=== PATIENT | male | born 1960 | race Caucasian/White ===

== ENCOUNTER 2019-05-13 17:00 | Inpatient (IN) | payer OTHER ==
[2019-05-13] MEDS ORDERED: PENDING SANTYL ORDER FOR WOUND CARE XX (17:30)
[2019-05-13] MEDS ORDERED: NACL 0.9% 3 ML SYG IV (17:30)
[2019-05-13 18:46] LABS: ADD MAN DIFF? NO
[2019-05-13 18:48] LABS: BASOPHIL # 0.1 10^3/ul (0.0-0.1); BASOPHILS % 0.7 % (0.0-2.0); EOSINOPHILS # 0.2 10^3/ul (0.0-0.5); EOSINOPHILS % 1.7 % (0.0-7.0); HEMATOCRIT 31.1 % (42.0-52.0); HEMOGLOBIN 9.9 g/dl (14.0-18.0); LYMPHOCYTES # 1.3 10^3/ul (0.8-2.9); LYMPHOCYTES % 12.2 % (15.0-51.0); MEAN CORPUSCULAR HEMOGLOBIN 29.9 pg (29.0-33.0); MEAN CORPUSCULAR HGB CONC 31.8 g/dl (32.0-37.0); MEAN PLATELET VOLUME 9.7 fl (7.4-10.4); MONOCYTE # 0.9 10^3/ul (0.3-0.9); MONOCYTES % 8.2 % (0.0-11.0); NEUTROPHIL # 8.4 10^3/ul (1.6-7.5); NEUTROPHILS % 76.7 % (39.0-77.0); PLATELET COUNT 373 10^3/UL (140-415); RED BLOOD COUNT 3.31 10^6/ul (4.70-6.10); RED CELL DISTRIBUTION WIDTH 15.1 % (11.5-14.5)
[2019-05-13 18:48] LABS: WHITE BLOOD COUNT 10.9 10^3/ul (4.8-10.8)
[2019-05-13] MEDS ORDERED: GLUCOSE GEL 15 GRAM TUBE BUCCAL (19:00)
[2019-05-13] MEDS ORDERED: GLUCOSE GEL 15 GRAM TUBE PO ×2 (19:00)
[2019-05-13] MEDS ORDERED: DEXTROSE 50% 50 ML SYRINGE IV ×2 (19:00)
[2019-05-13] MEDS ORDERED: GLUCAGON 1 MG INJ IM (19:00)
[2019-05-13 19:13] LABS: ALANINE AMINOTRANSFERASE 22 IU/L (13-69); ALBUMIN 3.2 g/dl (3.3-4.9); ALBUMIN/GLOBULIN RATIO 0.88; ALKALINE PHOSPHATASE 139 IU/L (42-121); ANION GAP 10 (5-13); ASPARTATE AMINO TRANSFERASE 22 IU/L (15-46); BILIRUBIN,INDIRECT 0.2 mg/dl (0-1.1); BILIRUBIN,TOTAL 0.2 mg/dl (0.2-1.3); BLOOD UREA NITROGEN 34 mg/dl (7-20); CALCIUM 8.8 mg/dl (8.4-10.2); CARBON DIOXIDE 22 mmol/L (21-31); CHLORIDE 101 mmol/L (97-110); CREATININE 1.65 mg/dl (0.61-1.24); Estimated GFR 43 mL/min (>60); GLUCOSE 124 mg/dl (70-220); POTASSIUM 4.8 mmol/L (3.5-5.1); SODIUM 133 mmol/L (135-144); TOTAL PROTEIN 6.8 g/dl (6.1-8.1)
[2019-05-13] MEDS: ATORVASTATIN 40 MG TAB PO (21:04)
[2019-05-13] MEDS: INSULIN ASPART [NOVOLOG] 3 ML PEN SC (22:51)
[2019-05-14] MEDS: INSULIN ASPART [NOVOLOG] 3 ML PEN SC ×6 (01:17→21:00)
[2019-05-14 06:07] LABS: ADD MAN DIFF? NO; HAAIG REFLEX REFLEX FILED
[2019-05-14 06:11] LABS: BASOPHIL # 0.1 10^3/ul (0.0-0.1); BASOPHILS % 0.8 % (0.0-2.0); EOSINOPHILS # 0.3 10^3/ul (0.0-0.5); EOSINOPHILS % 2.9 % (0.0-7.0); HEMATOCRIT 31.3 % (42.0-52.0); HEMOGLOBIN 9.7 g/dl (14.0-18.0); LYMPHOCYTES # 1.4 10^3/ul (0.8-2.9); LYMPHOCYTES % 13.2 % (15.0-51.0); MEAN CORPUSCULAR HEMOGLOBIN 29.4 pg (29.0-33.0); MEAN CORPUSCULAR VOLUME 94.8 fl (82.0-101.0); MEAN PLATELET VOLUME 9.7 fl (7.4-10.4); MONOCYTES % 8.9 % (0.0-11.0); NEUTROPHIL # 7.9 10^3/ul (1.6-7.5); NEUTROPHILS % 73.7 % (39.0-77.0); PLATELET COUNT 346 10^3/UL (140-415); RED CELL DISTRIBUTION WIDTH 15.1 % (11.5-14.5)
[2019-05-14 06:11] LABS: WHITE BLOOD COUNT 10.7 10^3/ul (4.8-10.8)
[2019-05-14 06:48] LABS: ALANINE AMINOTRANSFERASE 18 IU/L (13-69); ALKALINE PHOSPHATASE 132 IU/L (42-121); ANION GAP 8 (5-13); ASPARTATE AMINO TRANSFERASE 17 IU/L (15-46); BILIRUBIN,INDIRECT 0.1 mg/dl (0-1.1); BILIRUBIN,TOTAL 0.1 mg/dl (0.2-1.3); BLOOD UREA NITROGEN 39 mg/dl (7-20); CALCIUM 9.4 mg/dl (8.4-10.2); CARBON DIOXIDE 23 mmol/L (21-31); CHLORIDE 104 mmol/L (97-110); CREATININE 1.97 mg/dl (0.61-1.24); Estimated GFR 35 mL/min (>60); GLUCOSE 140 mg/dl (70-220); POTASSIUM 3.9 mmol/L (3.5-5.1); SODIUM 135 mmol/L (135-144); TOTAL PROTEIN 6.3 g/dl (6.1-8.1)
[2019-05-14 07:04] LABS: HEMOGLOBIN A1C 5.6 % (0-5.9)
[2019-05-14 07:34] LABS: HEPATITIS B SURFACE ANTIGEN NEGATIVE (NEGATIVE)
[2019-05-14 07:52] LABS: HEPATITIS B CORE ANTIBODY NEGATIVE (NEGATIVE); HEPATITIS C VIRAL ANTIBODY NEGATIVE (NEGATIVE)
[2019-05-14] MEDS: ASPIRIN 81 MG TAB PO (08:13)
[2019-05-14] MEDS: ENOXAPARIN 40 MG/0.4 ML SYG SC (08:18)
[2019-05-14] MEDS: COLLAGENASE 5 GM (UD JAR) TOP (11:03)
[2019-05-14] MEDS ORDERED: LEVOFLOXACIN 500 MG TAB GTB (18:30)
[2019-05-14] MEDS: HEPARIN 1000 UNITS/ML 10 ML INJ CATHETER (18:40)
[2019-05-14] MEDS ORDERED: BALSAM PERU/CASTOR OIL 60 GM TUBE TOP (21:00)
[2019-05-14] MEDS: METOCLOPRAMIDE (1 MG/ML) 10 ML CUP GTB (21:45)
[2019-05-14] MEDS: GABAPENTIN 100 MG CAP GTB (21:45)
[2019-05-14] MEDS: LANSOPRAZOLE 30 MG CAP PO (21:45)
[2019-05-14] MEDS: LEVOFLOXACIN 500 MG TAB GTB (21:45)
[2019-05-14] MEDS: MIRTAZAPINE 15 MG TAB GTB (21:45)
[2019-05-14] MEDS: VENLAFAXINE 37.5 MG TAB GTB (21:45)
[2019-05-14] MEDS: ATORVASTATIN 10 MG TAB GTB (21:45)
[2019-05-14] MEDS: morphine 2 MG INJ IV (22:48)
[2019-05-14] MEDS: L ACIDOPHIL/B LACTIS/B LONGUM CAPSULE PO (22:53)
[2019-05-15] MEDS: INSULIN ASPART [NOVOLOG] 3 ML PEN SC ×6 (01:02→20:14)
[2019-05-15] MEDS: morphine 2 MG INJ IV ×2 (03:17→20:12)
[2019-05-15] MEDS: METOCLOPRAMIDE (1 MG/ML) 10 ML CUP GTB ×3 (05:19→22:00)
[2019-05-15 06:41] LABS: ADD MAN DIFF? NO
[2019-05-15 06:45] LABS: BASOPHIL # 0.1 10^3/ul (0.0-0.1); BASOPHILS % 0.6 % (0.0-2.0); EOSINOPHILS # 0.1 10^3/ul (0.0-0.5); EOSINOPHILS % 0.8 % (0.0-7.0); HEMATOCRIT 30.5 % (42.0-52.0); HEMOGLOBIN 9.7 g/dl (14.0-18.0); LYMPHOCYTES # 1.6 10^3/ul (0.8-2.9); MEAN CORPUSCULAR HEMOGLOBIN 29.6 pg (29.0-33.0); MEAN CORPUSCULAR HGB CONC 31.8 g/dl (32.0-37.0); MEAN PLATELET VOLUME 9.6 fl (7.4-10.4); MONOCYTE # 1.2 10^3/ul (0.3-0.9); MONOCYTES % 8.6 % (0.0-11.0); NEUTROPHIL # 10.5 10^3/ul (1.6-7.5); NEUTROPHILS % 77.5 % (39.0-77.0); PLATELET COUNT 367 10^3/UL (140-415); RED BLOOD COUNT 3.28 10^6/ul (4.70-6.10); RED CELL DISTRIBUTION WIDTH 15.1 % (11.5-14.5)
[2019-05-15 06:45] LABS: WHITE BLOOD COUNT 13.6 10^3/ul (4.8-10.8)
[2019-05-15 07:25] LABS: ANION GAP 7 (5-13); BLOOD UREA NITROGEN 32 mg/dl (7-20); CALCIUM 8.8 mg/dl (8.4-10.2); CARBON DIOXIDE 29 mmol/L (21-31); CHLORIDE 100 mmol/L (97-110); CREATININE 1.45 mg/dl (0.61-1.24); Estimated GFR 49 mL/min (>60); GLUCOSE 165 mg/dl (70-220); POTASSIUM 3.5 mmol/L (3.5-5.1); SODIUM 136 mmol/L (135-144)
[2019-05-15 07:26] LABS: MAGNESIUM 2.3 mg/dl (1.7-2.5)
[2019-05-15 07:26] LABS: PHOSPHORUS 1.9 mg/dl (2.5-4.9)
[2019-05-15] MEDS: ASPIRIN 81 MG TAB GTB (08:41)
[2019-05-15] MEDS: L ACIDOPHIL/B LACTIS/B LONGUM CAPSULE PO ×3 (08:42→20:11)
[2019-05-15] MEDS: GABAPENTIN 100 MG CAP GTB ×3 (08:42→20:11)
[2019-05-15] MEDS: SEVELAMER CARBONATE 800 MG TABLET PO ×3 (08:42→16:41)
[2019-05-15] MEDS: VENLAFAXINE 37.5 MG TAB GTB ×2 (08:42→20:10)
[2019-05-15] MEDS: LANSOPRAZOLE 30 MG CAP PO ×2 (08:42→20:11)
[2019-05-15] MEDS: COLLAGENASE 5 GM (UD JAR) TOP (08:43)
[2019-05-15] MEDS ORDERED: COLLAGENASE 5 GM (UD JAR) TOP (09:00)
[2019-05-15] MEDS ORDERED: COLLAGENASE 30 GM TUBE TOP (09:00)
[2019-05-15] MEDS: ENOXAPARIN 40 MG/0.4 ML SYG SC (09:12)
[2019-05-15] MEDS: CLONIDINE 0.1 MG/24 HR PATCH TRANSDERM (18:04)
[2019-05-15] MEDS: ATORVASTATIN 10 MG TAB GTB (20:11)
[2019-05-15] MEDS: MIRTAZAPINE 15 MG TAB GTB (20:11)
[2019-05-16] MEDS: INSULIN ASPART [NOVOLOG] 3 ML PEN SC ×6 (01:00→20:30)
[2019-05-16] MEDS: METOCLOPRAMIDE (1 MG/ML) 10 ML CUP GTB ×3 (05:05→22:00)
[2019-05-16 07:46] LABS: ADD MAN DIFF? NO
[2019-05-16 07:54] LABS: WHITE BLOOD COUNT 9.2 10^3/ul (4.8-10.8)
[2019-05-16 07:54] LABS: BASOPHIL # 0.1 10^3/ul (0.0-0.1); BASOPHILS % 1.1 % (0.0-2.0); EOSINOPHILS # 0.4 10^3/ul (0.0-0.5); EOSINOPHILS % 3.9 % (0.0-7.0); HEMATOCRIT 27.4 % (42.0-52.0); HEMOGLOBIN 8.7 g/dl (14.0-18.0); LYMPHOCYTES # 1.5 10^3/ul (0.8-2.9); LYMPHOCYTES % 15.9 % (15.0-51.0); MEAN CORPUSCULAR HEMOGLOBIN 29.3 pg (29.0-33.0); MEAN CORPUSCULAR HGB CONC 31.8 g/dl (32.0-37.0); MEAN CORPUSCULAR VOLUME 92.3 fl (82.0-101.0); MEAN PLATELET VOLUME 9.7 fl (7.4-10.4); MONOCYTE # 0.7 10^3/ul (0.3-0.9); MONOCYTES % 8.1 % (0.0-11.0); NEUTROPHIL # 6.5 10^3/ul (1.6-7.5); NEUTROPHILS % 70.7 % (39.0-77.0); PLATELET COUNT 344 10^3/UL (140-415); RED BLOOD COUNT 2.97 10^6/ul (4.70-6.10); RED CELL DISTRIBUTION WIDTH 14.8 % (11.5-14.5)
[2019-05-16] MEDS: SEVELAMER CARBONATE 800 MG TABLET PO ×3 (07:55→17:22)
[2019-05-16 08:11] LABS: PROTIME 14.3 Sec (11.9-14.9); PT RATIO 1.1
[2019-05-16 08:28] LABS: PHOSPHORUS 3.1 mg/dl (2.5-4.9)
[2019-05-16 08:28] LABS: MAGNESIUM 2.3 mg/dl (1.7-2.5)
[2019-05-16 08:30] LABS: ALANINE AMINOTRANSFERASE 20 IU/L (13-69); ALBUMIN 2.6 g/dl (3.3-4.9); ALBUMIN/GLOBULIN RATIO 0.86; ALKALINE PHOSPHATASE 119 IU/L (42-121); ANION GAP 9 (5-13); ASPARTATE AMINO TRANSFERASE 17 IU/L (15-46); BILIRUBIN,INDIRECT 0.2 mg/dl (0-1.1); BILIRUBIN,TOTAL 0.2 mg/dl (0.2-1.3); BLOOD UREA NITROGEN 42 mg/dl (7-20); CALCIUM 8.6 mg/dl (8.4-10.2); CARBON DIOXIDE 27 mmol/L (21-31); CHLORIDE 101 mmol/L (97-110); Estimated GFR 34 mL/min (>60); GLUCOSE 91 mg/dl (70-220); SODIUM 137 mmol/L (135-144); TOTAL PROTEIN 5.6 g/dl (6.1-8.1)
[2019-05-16] MEDS: VENLAFAXINE 37.5 MG TAB GTB ×2 (08:30→20:32)
[2019-05-16] MEDS: ASPIRIN 81 MG TAB GTB (08:30)
[2019-05-16] MEDS: L ACIDOPHIL/B LACTIS/B LONGUM CAPSULE PO ×2 (08:30→12:20)
[2019-05-16] MEDS: LANSOPRAZOLE 30 MG CAP PO ×2 (08:30→20:32)
[2019-05-16] MEDS: GABAPENTIN 100 MG CAP GTB ×3 (08:30→20:32)
[2019-05-16] MEDS: COLLAGENASE 5 GM (UD JAR) TOP (08:32)
[2019-05-16] MEDS: FAMOTIDINE 20 MG INJ IV (08:33)
[2019-05-16] MEDS: ENOXAPARIN 40 MG/0.4 ML SYG SC (08:41)
[2019-05-16] MEDS: DEXTROSE 5%-0.45% NACL 1,000 ML IV (14:36)
[2019-05-16] MEDS: morphine 2 MG INJ IV (19:57)
[2019-05-16] MEDS: ATORVASTATIN 10 MG TAB GTB (20:32)
[2019-05-16] MEDS: MIRTAZAPINE 15 MG TAB GTB (20:32)
[2019-05-16] MEDS: LEVOFLOXACIN 500 MG TAB GTB (20:32)
[2019-05-17] MEDS: INSULIN ASPART [NOVOLOG] 3 ML PEN SC ×6 (01:00→20:37)
[2019-05-17] MEDS: morphine 2 MG INJ IV ×2 (01:24→20:43)
[2019-05-17] MEDS: METOCLOPRAMIDE (1 MG/ML) 10 ML CUP GTB ×3 (05:56→22:00)
[2019-05-17 06:40] LABS: ADD MAN DIFF? NO
[2019-05-17 06:47] LABS: WHITE BLOOD COUNT 8.4 10^3/ul (4.8-10.8)
[2019-05-17 06:47] LABS: BASOPHIL # 0.1 10^3/ul (0.0-0.1); BASOPHILS % 1.2 % (0.0-2.0); EOSINOPHILS # 0.3 10^3/ul (0.0-0.5); EOSINOPHILS % 3.4 % (0.0-7.0); HEMATOCRIT 31.3 % (42.0-52.0); HEMOGLOBIN 9.8 g/dl (14.0-18.0); LYMPHOCYTES # 1.4 10^3/ul (0.8-2.9); MEAN CORPUSCULAR HEMOGLOBIN 29.2 pg (29.0-33.0); MEAN CORPUSCULAR HGB CONC 31.3 g/dl (32.0-37.0); MEAN CORPUSCULAR VOLUME 93.2 fl (82.0-101.0); MEAN PLATELET VOLUME 9.4 fl (7.4-10.4); MONOCYTE # 0.6 10^3/ul (0.3-0.9); MONOCYTES % 6.9 % (0.0-11.0); NEUTROPHIL # 6.1 10^3/ul (1.6-7.5); NEUTROPHILS % 72.1 % (39.0-77.0); PLATELET COUNT 358 10^3/UL (140-415); RED BLOOD COUNT 3.36 10^6/ul (4.70-6.10); RED CELL DISTRIBUTION WIDTH 14.7 % (11.5-14.5)
[2019-05-17 07:05] LABS: INR 1.12; PROTIME 14.5 Sec (11.9-14.9); PT RATIO 1.1
[2019-05-17 07:19] LABS: ANION GAP 12 (5-13); BLOOD UREA NITROGEN 50 mg/dl (7-20); CALCIUM 8.9 mg/dl (8.4-10.2); CARBON DIOXIDE 24 mmol/L (21-31); CHLORIDE 102 mmol/L (97-110); CREATININE 2.47 mg/dl (0.61-1.24); Estimated GFR 27 mL/min (>60); GLUCOSE 116 mg/dl (70-220); POTASSIUM 3.9 mmol/L (3.5-5.1); SODIUM 138 mmol/L (135-144)
[2019-05-17] MEDS: LANSOPRAZOLE 30 MG CAP PO ×2 (07:55→20:26)
[2019-05-17] MEDS: SEVELAMER CARBONATE 800 MG TABLET PO ×3 (07:55→16:49)
[2019-05-17] MEDS: VENLAFAXINE 37.5 MG TAB GTB ×2 (07:55→20:26)
[2019-05-17] MEDS: GABAPENTIN 100 MG CAP GTB ×3 (07:55→20:26)
[2019-05-17] MEDS: ASPIRIN 81 MG TAB GTB (07:55)
[2019-05-17] MEDS: COLLAGENASE 5 GM (UD JAR) TOP (08:49)
[2019-05-17] MEDS: FAMOTIDINE 20 MG INJ IV (08:49)
[2019-05-17] MEDS: DEXTROSE 5%-0.45% NACL 1,000 ML IV (09:01)
[2019-05-17] MEDS: FENTAnyl 50 MCG/ML VIAL (14:09)
[2019-05-17] MEDS: MIDAZOLAM 1 MG/ML 2 ML INJ (14:09)
[2019-05-17] MEDS: LIDOCAINE 2% (SDV) 5 ML INJ (14:09)
[2019-05-17] MEDS: ETOMIDATE 20 MG INJ (14:10)
[2019-05-17] MEDS ORDERED: HYDROmorphONE 1 MG/5 ML IV SYRINGE IV (15:00)
[2019-05-17] MEDS ORDERED: ONDANSETRON 4 MG INJ IV (15:00)
[2019-05-17] MEDS: IOHEXOL 300MG/ML 30 ML BTL (15:20)
[2019-05-17] MEDS: ATORVASTATIN 10 MG TAB GTB (20:26)
[2019-05-17] MEDS: MIRTAZAPINE 15 MG TAB GTB (20:26)
[2019-05-18] MEDS: INSULIN ASPART [NOVOLOG] 3 ML PEN SC ×6 (01:00→20:42)
[2019-05-18] MEDS: HEPARIN 1000 UNITS/ML 10 ML INJ CATHETER (01:15)
[2019-05-18] MEDS: morphine 2 MG INJ IV (02:12)
[2019-05-18] MEDS: ACETAMINOPHEN 650MG/20.3ML CUP GTB (03:41)
[2019-05-18] MEDS: METOCLOPRAMIDE (1 MG/ML) 10 ML CUP GTB ×3 (05:27→21:37)
[2019-05-18 07:31] LABS: ADD MAN DIFF? NO
[2019-05-18 07:39] LABS: BASOPHIL # 0.1 10^3/ul (0.0-0.1); BASOPHILS % 0.7 % (0.0-2.0); EOSINOPHILS # 0.1 10^3/ul (0.0-0.5); EOSINOPHILS % 0.9 % (0.0-7.0); HEMATOCRIT 30.2 % (42.0-52.0); HEMOGLOBIN 9.6 g/dl (14.0-18.0); LYMPHOCYTES # 0.9 10^3/ul (0.8-2.9); LYMPHOCYTES % 8.4 % (15.0-51.0); MEAN CORPUSCULAR HEMOGLOBIN 29.4 pg (29.0-33.0); MEAN CORPUSCULAR HGB CONC 31.8 g/dl (32.0-37.0); MEAN CORPUSCULAR VOLUME 92.4 fl (82.0-101.0); MEAN PLATELET VOLUME 9.7 fl (7.4-10.4); MONOCYTE # 0.7 10^3/ul (0.3-0.9); MONOCYTES % 6.3 % (0.0-11.0); NEUTROPHIL # 8.8 10^3/ul (1.6-7.5); NEUTROPHILS % 83.4 % (39.0-77.0); PLATELET COUNT 362 10^3/UL (140-415); RED BLOOD COUNT 3.27 10^6/ul (4.70-6.10); RED CELL DISTRIBUTION WIDTH 14.5 % (11.5-14.5)
[2019-05-18 07:39] LABS: WHITE BLOOD COUNT 10.5 10^3/ul (4.8-10.8)
[2019-05-18 08:15] LABS: ANION GAP 9 (5-13); BLOOD UREA NITROGEN 32 mg/dl (7-20); CALCIUM 8.7 mg/dl (8.4-10.2); CARBON DIOXIDE 28 mmol/L (21-31); CHLORIDE 100 mmol/L (97-110); Estimated GFR 44 mL/min (>60); GLUCOSE 207 mg/dl (70-220); POTASSIUM 3.3 mmol/L (3.5-5.1); SODIUM 137 mmol/L (135-144)
[2019-05-18] MEDS: GABAPENTIN 100 MG CAP GTB ×3 (08:28→20:27)
[2019-05-18] MEDS: VENLAFAXINE 37.5 MG TAB GTB ×2 (08:28→20:27)
[2019-05-18] MEDS: LANSOPRAZOLE 30 MG CAP PO ×2 (08:28→20:27)
[2019-05-18] MEDS: ASPIRIN 81 MG TAB GTB (08:28)
[2019-05-18] MEDS: FAMOTIDINE 20 MG INJ IV (08:28)
[2019-05-18] MEDS: SEVELAMER CARBONATE 800 MG TABLET PO ×3 (08:28→16:55)
[2019-05-18] MEDS: COLLAGENASE 5 GM (UD JAR) TOP (09:36)
[2019-05-18] MEDS: ATORVASTATIN 10 MG TAB GTB (20:26)
[2019-05-18] MEDS: hydrALAzine 20 MG INJ IV (20:26)
[2019-05-18] MEDS: LEVOFLOXACIN 500 MG TAB GTB (20:26)
[2019-05-18] MEDS: MIRTAZAPINE 15 MG TAB GTB (20:27)
[2019-05-18] MEDS: L ACIDOPHIL/B LACTIS/B LONGUM CAPSULE PO (20:27)
[2019-05-19] MEDS: INSULIN ASPART [NOVOLOG] 3 ML PEN SC ×6 (00:55→21:29)
[2019-05-19] MEDS: METOCLOPRAMIDE (1 MG/ML) 10 ML CUP GTB ×3 (04:47→21:05)
[2019-05-19 06:52] LABS: ADD MAN DIFF? NO
[2019-05-19 06:57] LABS: WHITE BLOOD COUNT 6.3 10^3/ul (4.8-10.8)
[2019-05-19 06:57] LABS: BASOPHILS % 0.6 % (0.0-2.0); EOSINOPHILS # 0.3 10^3/ul (0.0-0.5); EOSINOPHILS % 4.6 % (0.0-7.0); HEMATOCRIT 27.3 % (42.0-52.0); HEMOGLOBIN 8.7 g/dl (14.0-18.0); LYMPHOCYTES # 1.2 10^3/ul (0.8-2.9); LYMPHOCYTES % 18.8 % (15.0-51.0); MEAN CORPUSCULAR HEMOGLOBIN 29.3 pg (29.0-33.0); MEAN CORPUSCULAR HGB CONC 31.9 g/dl (32.0-37.0); MEAN CORPUSCULAR VOLUME 91.9 fl (82.0-101.0); MEAN PLATELET VOLUME 9.3 fl (7.4-10.4); MONOCYTE # 0.6 10^3/ul (0.3-0.9); MONOCYTES % 9.4 % (0.0-11.0); NEUTROPHIL # 4.1 10^3/ul (1.6-7.5); NEUTROPHILS % 66.1 % (39.0-77.0); PLATELET COUNT 298 10^3/UL (140-415); RED BLOOD COUNT 2.97 10^6/ul (4.70-6.10); RED CELL DISTRIBUTION WIDTH 14.3 % (11.5-14.5)
[2019-05-19 07:14] LABS: ANION GAP 8 (5-13); BLOOD UREA NITROGEN 44 mg/dl (7-20); CALCIUM 8.5 mg/dl (8.4-10.2); CARBON DIOXIDE 28 mmol/L (21-31); CHLORIDE 98 mmol/L (97-110); CREATININE 1.98 mg/dl (0.61-1.24); Estimated GFR 35 mL/min (>60); GLUCOSE 186 mg/dl (70-220); POTASSIUM 3.4 mmol/L (3.5-5.1); SODIUM 134 mmol/L (135-144)
[2019-05-19] MEDS: SEVELAMER CARBONATE 800 MG TABLET PO ×3 (07:53→17:28)
[2019-05-19] MEDS: POTASSIUM CHLORIDE 20 MEQ POWDER FOR ORAL SOLN GTB (07:53)
[2019-05-19] MEDS: COLLAGENASE 5 GM (UD JAR) TOP (08:36)
[2019-05-19] MEDS: L ACIDOPHIL/B LACTIS/B LONGUM CAPSULE PO ×2 (08:37→20:58)
[2019-05-19] MEDS: LANSOPRAZOLE 30 MG CAP PO ×2 (08:37→20:58)
[2019-05-19] MEDS: ASPIRIN 81 MG TAB GTB (08:37)
[2019-05-19] MEDS: GABAPENTIN 100 MG CAP GTB ×3 (08:37→20:58)
[2019-05-19] MEDS: VENLAFAXINE 37.5 MG TAB GTB ×2 (08:37→20:58)
[2019-05-19] MEDS: FAMOTIDINE 20 MG INJ IV (08:38)
[2019-05-19] MEDS ORDERED: ENOXAPARIN 40 MG/0.4 ML SYG SC (09:00)
[2019-05-19] MEDS: HEPARIN 1000 UNITS/ML 10 ML INJ CATHETER (13:26)
[2019-05-19] MEDS: morphine 2 MG INJ IV (19:52)
[2019-05-19] MEDS: ATORVASTATIN 10 MG TAB GTB (20:58)
[2019-05-19] MEDS: MIRTAZAPINE 15 MG TAB GTB (20:58)
[2019-05-20] MEDS: INSULIN ASPART [NOVOLOG] 3 ML PEN SC ×6 (01:24→21:37)
[2019-05-20] MEDS: METOCLOPRAMIDE (1 MG/ML) 10 ML CUP GTB ×3 (05:04→21:25)
[2019-05-20] MEDS: SEVELAMER CARBONATE 800 MG TABLET PO ×3 (07:51→17:40)
[2019-05-20] MEDS: L ACIDOPHIL/B LACTIS/B LONGUM CAPSULE PO ×2 (08:39→21:25)
[2019-05-20] MEDS: GABAPENTIN 100 MG CAP GTB ×3 (08:39→21:25)
[2019-05-20] MEDS: LANSOPRAZOLE 30 MG CAP PO ×2 (08:39→21:25)
[2019-05-20] MEDS: COLLAGENASE 5 GM (UD JAR) TOP (08:39)
[2019-05-20] MEDS: ASPIRIN 81 MG TAB GTB (08:40)
[2019-05-20] MEDS: FAMOTIDINE 20 MG INJ IV (08:40)
[2019-05-20] MEDS: VENLAFAXINE 37.5 MG TAB GTB ×2 (08:40→21:25)
[2019-05-20] MEDS: LEVOFLOXACIN 500 MG TAB GTB (21:25)
[2019-05-20] MEDS: ATORVASTATIN 10 MG TAB GTB (21:25)
[2019-05-20] MEDS: MIRTAZAPINE 15 MG TAB GTB (21:25)
[2019-05-21] MEDS: INSULIN ASPART [NOVOLOG] 3 ML PEN SC ×4 (01:02→17:28)
[2019-05-21] MEDS: METOCLOPRAMIDE (1 MG/ML) 10 ML CUP GTB ×3 (05:06→21:53)
[2019-05-21 07:25] LABS: ADD MAN DIFF? NO
[2019-05-21 07:31] LABS: WHITE BLOOD COUNT 6.3 10^3/ul (4.8-10.8)
[2019-05-21 07:31] LABS: BASOPHIL # 0.1 10^3/ul (0.0-0.1); EOSINOPHILS # 0.4 10^3/ul (0.0-0.5); HEMATOCRIT 29.5 % (42.0-52.0); HEMOGLOBIN 9.2 g/dl (14.0-18.0); LYMPHOCYTES # 1.2 10^3/ul (0.8-2.9); LYMPHOCYTES % 19.4 % (15.0-51.0); MEAN CORPUSCULAR HEMOGLOBIN 29.1 pg (29.0-33.0); MEAN CORPUSCULAR HGB CONC 31.2 g/dl (32.0-37.0); MEAN CORPUSCULAR VOLUME 93.4 fl (82.0-101.0); MEAN PLATELET VOLUME 9.9 fl (7.4-10.4); MONOCYTE # 0.7 10^3/ul (0.3-0.9); MONOCYTES % 10.8 % (0.0-11.0); NEUTROPHIL # 3.9 10^3/ul (1.6-7.5); NEUTROPHILS % 61.3 % (39.0-77.0); PLATELET COUNT 336 10^3/UL (140-415); RED BLOOD COUNT 3.16 10^6/ul (4.70-6.10); RED CELL DISTRIBUTION WIDTH 14.4 % (11.5-14.5)
[2019-05-21 07:54] LABS: ANION GAP 6 (5-13); BLOOD UREA NITROGEN 51 mg/dl (7-20); CALCIUM 8.7 mg/dl (8.4-10.2); CARBON DIOXIDE 30 mmol/L (21-31); CHLORIDE 100 mmol/L (97-110); Estimated GFR 36 mL/min (>60); GLUCOSE 162 mg/dl (70-220); MAGNESIUM 2.4 mg/dl (1.7-2.5); PHOSPHORUS 2.1 mg/dl (2.5-4.9); SODIUM 136 mmol/L (135-144)
[2019-05-21] MEDS: SEVELAMER CARBONATE 800 MG TABLET PO ×3 (08:23→17:23)
[2019-05-21] MEDS: LANSOPRAZOLE 30 MG CAP PO ×2 (08:23→21:53)
[2019-05-21] MEDS: L ACIDOPHIL/B LACTIS/B LONGUM CAPSULE PO ×2 (08:23→21:53)
[2019-05-21] MEDS: ASPIRIN 81 MG TAB GTB (08:23)
[2019-05-21] MEDS: COLLAGENASE 5 GM (UD JAR) TOP (08:23)
[2019-05-21] MEDS: VENLAFAXINE 37.5 MG TAB GTB ×2 (08:23→21:53)
[2019-05-21] MEDS: GABAPENTIN 100 MG CAP GTB ×3 (08:24→21:52)
[2019-05-21] MEDS: FAMOTIDINE 20 MG INJ IV (08:24)
[2019-05-21] MEDS: morphine 2 MG INJ IV (08:39)
[2019-05-21 10:23] LABS: ADD UMIC YES; UR ASCORBIC ACID NEGATIVE (NEGATIVE); UR BILIRUBIN (Dip) NEGATIVE (NEGATIVE); UR BLOOD (Dip) 1+ mg/dL (NEGATIVE); UR CLARITY CLEAR (CLEAR); UR COLOR YELLOW (YELLOW); UR GLUCOSE (Dip) 1+ mg/dL (NEGATIVE); UR KETONES (Dip) NEGATIVE (NEGATIVE); UR LEUKOCYTE ESTERASE (Dip) TRACE Leu/ul (NEGATIVE); UR NITRITE (Dip) NEGATIVE (NEGATIVE); UR RBC 1 /HPF (0-5); UR TOTAL PROTEIN (Dip) 2+ mg/dl (NEGATIVE); UR UROBILINOGEN (Dip) NEGATIVE (NEGATIVE); UR WBC 19 /HPF (0-5)
[2019-05-21] MEDS: SODIUM PHOSPHATE 15 MMOL in SOD CHLORIDE 0.9% 250 ML IVPB (13:48)
[2019-05-21] MEDS: MIRTAZAPINE 15 MG TAB GTB (21:53)
[2019-05-21] MEDS: ATORVASTATIN 10 MG TAB GTB (21:53)
[2019-05-22] MEDS: INSULIN ASPART [NOVOLOG] 3 ML PEN SC ×4 (00:34→17:40)
[2019-05-22] MEDS: morphine 2 MG INJ IV (00:38)
[2019-05-22] MEDS: METOCLOPRAMIDE (1 MG/ML) 10 ML CUP GTB ×3 (05:57→20:59)
[2019-05-22 06:40] LABS: ADD MAN DIFF? NO
[2019-05-22 06:47] LABS: WHITE BLOOD COUNT 6.7 10^3/ul (4.8-10.8)
[2019-05-22 06:47] LABS: BASOPHIL # 0.1 10^3/ul (0.0-0.1); BASOPHILS % 0.9 % (0.0-2.0); EOSINOPHILS # 0.4 10^3/ul (0.0-0.5); EOSINOPHILS % 5.4 % (0.0-7.0); HEMATOCRIT 29.8 % (42.0-52.0); HEMOGLOBIN 9.5 g/dl (14.0-18.0); LYMPHOCYTES # 1.5 10^3/ul (0.8-2.9); LYMPHOCYTES % 21.7 % (15.0-51.0); MEAN CORPUSCULAR HEMOGLOBIN 29.2 pg (29.0-33.0); MEAN CORPUSCULAR HGB CONC 31.9 g/dl (32.0-37.0); MEAN CORPUSCULAR VOLUME 91.7 fl (82.0-101.0); MEAN PLATELET VOLUME 9.7 fl (7.4-10.4); MONOCYTE # 0.7 10^3/ul (0.3-0.9); MONOCYTES % 10.8 % (0.0-11.0); NEUTROPHIL # 4.1 10^3/ul (1.6-7.5); NEUTROPHILS % 60.8 % (39.0-77.0); PLATELET COUNT 341 10^3/UL (140-415); RED BLOOD COUNT 3.25 10^6/ul (4.70-6.10); RED CELL DISTRIBUTION WIDTH 14.2 % (11.5-14.5)
[2019-05-22 07:38] LABS: ANION GAP 8 (5-13); BLOOD UREA NITROGEN 64 mg/dl (7-20); CALCIUM 8.5 mg/dl (8.4-10.2); CARBON DIOXIDE 28 mmol/L (21-31); CHLORIDE 99 mmol/L (97-110); CREATININE 2.22 mg/dl (0.61-1.24); Estimated GFR 30 mL/min (>60); GLUCOSE 168 mg/dl (70-220); SODIUM 135 mmol/L (135-144)
[2019-05-22 08:21] LABS: PHOSPHORUS 3.2 mg/dl (2.5-4.9)
[2019-05-22 08:21] LABS: MAGNESIUM 2.4 mg/dl (1.7-2.5)
[2019-05-22] MEDS: COLLAGENASE 5 GM (UD JAR) TOP (09:07)
[2019-05-22] MEDS: L ACIDOPHIL/B LACTIS/B LONGUM CAPSULE PO ×2 (09:07→20:56)
[2019-05-22] MEDS: SEVELAMER CARBONATE 800 MG TABLET PO ×3 (09:07→17:31)
[2019-05-22] MEDS: VENLAFAXINE 37.5 MG TAB GTB ×2 (09:07→20:56)
[2019-05-22] MEDS: FAMOTIDINE 20 MG INJ IV (09:07)
[2019-05-22] MEDS: GABAPENTIN 100 MG CAP GTB ×3 (09:07→20:56)
[2019-05-22] MEDS: ASPIRIN 81 MG TAB GTB (09:07)
[2019-05-22] MEDS: LANSOPRAZOLE 30 MG CAP PO ×2 (09:07→20:56)
[2019-05-22] MEDS: CLONIDINE 0.1 MG/24 HR PATCH TRANSDERM (18:40)
[2019-05-22] MEDS: HEPARIN 1000 UNITS/ML 10 ML INJ CATHETER (19:53)
[2019-05-22] MEDS: MIRTAZAPINE 15 MG TAB GTB (20:56)
[2019-05-22] MEDS: ATORVASTATIN 10 MG TAB GTB (20:56)
[2019-05-22] MEDS: LEVOFLOXACIN 500 MG TAB GTB (20:57)
[2019-05-23] MEDS: morphine 2 MG INJ IV (01:21)
[2019-05-23] MEDS: INSULIN ASPART [NOVOLOG] 3 ML PEN SC ×5 (01:33→17:18)
[2019-05-23] MEDS: METOCLOPRAMIDE (1 MG/ML) 10 ML CUP GTB ×3 (05:52→21:50)
[2019-05-23] MEDS: VENLAFAXINE 37.5 MG TAB GTB ×2 (09:09→21:51)
[2019-05-23] MEDS: ASPIRIN 81 MG TAB GTB (09:09)
[2019-05-23] MEDS: GABAPENTIN 100 MG CAP GTB ×3 (09:09→21:52)
[2019-05-23] MEDS: SEVELAMER CARBONATE 800 MG TABLET PO ×3 (09:09→17:18)
[2019-05-23] MEDS: COLLAGENASE 5 GM (UD JAR) TOP (09:09)
[2019-05-23] MEDS: L ACIDOPHIL/B LACTIS/B LONGUM CAPSULE PO ×2 (09:09→21:50)
[2019-05-23] MEDS: LANSOPRAZOLE 30 MG CAP PO ×2 (09:09→21:50)
[2019-05-23] MEDS: FAMOTIDINE 20 MG INJ IV (09:09)
[2019-05-23 12:22] LABS: ADD MAN DIFF? NO
[2019-05-23 12:24] LABS: BASOPHIL # 0.1 10^3/ul (0.0-0.1); BASOPHILS % 0.9 % (0.0-2.0); EOSINOPHILS # 0.4 10^3/ul (0.0-0.5); EOSINOPHILS % 5.5 % (0.0-7.0); HEMATOCRIT 31.2 % (42.0-52.0); HEMOGLOBIN 9.7 g/dl (14.0-18.0); LYMPHOCYTES # 1.4 10^3/ul (0.8-2.9); LYMPHOCYTES % 21.7 % (15.0-51.0); MEAN CORPUSCULAR HEMOGLOBIN 28.6 pg (29.0-33.0); MEAN CORPUSCULAR HGB CONC 31.1 g/dl (32.0-37.0); MEAN PLATELET VOLUME 9.8 fl (7.4-10.4); MONOCYTE # 0.9 10^3/ul (0.3-0.9); MONOCYTES % 14.5 % (0.0-11.0); NEUTROPHIL # 3.6 10^3/ul (1.6-7.5); NEUTROPHILS % 56.8 % (39.0-77.0); PLATELET COUNT 317 10^3/UL (140-415); RED BLOOD COUNT 3.39 10^6/ul (4.70-6.10); RED CELL DISTRIBUTION WIDTH 14.2 % (11.5-14.5)
[2019-05-23 12:24] LABS: WHITE BLOOD COUNT 6.4 10^3/ul (4.8-10.8)
[2019-05-23 12:47] LABS: ANION GAP 7 (5-13); BLOOD UREA NITROGEN 46 mg/dl (7-20); CALCIUM 8.4 mg/dl (8.4-10.2); CARBON DIOXIDE 28 mmol/L (21-31); CHLORIDE 101 mmol/L (97-110); CREATININE 1.62 mg/dl (0.61-1.24); Estimated GFR 44 mL/min (>60); GLUCOSE 179 mg/dl (70-220); POTASSIUM 4.7 mmol/L (3.5-5.1); SODIUM 136 mmol/L (135-144)
[2019-05-23] MEDS: ATORVASTATIN 10 MG TAB GTB (21:50)
[2019-05-23] MEDS: MIRTAZAPINE 15 MG TAB GTB (21:51)
[2019-05-24] MEDS: INSULIN ASPART [NOVOLOG] 3 ML PEN SC ×5 (01:31→21:00)
[2019-05-24] MEDS: METOCLOPRAMIDE (1 MG/ML) 10 ML CUP GTB ×3 (06:32→21:02)
[2019-05-24 08:25] LABS: ADD MAN DIFF? NO
[2019-05-24] MEDS: L ACIDOPHIL/B LACTIS/B LONGUM CAPSULE PO ×2 (08:30→20:59)
[2019-05-24] MEDS: VENLAFAXINE 37.5 MG TAB GTB ×2 (08:30→21:00)
[2019-05-24] MEDS: SEVELAMER CARBONATE 800 MG TABLET PO ×3 (08:30→17:15)
[2019-05-24] MEDS: ASPIRIN 81 MG TAB GTB (08:31)
[2019-05-24] MEDS: GABAPENTIN 100 MG CAP GTB ×3 (08:31→21:00)
[2019-05-24] MEDS: LANSOPRAZOLE 30 MG CAP PO ×2 (08:31→20:59)
[2019-05-24] MEDS: FAMOTIDINE 20 MG INJ IV (08:31)
[2019-05-24] MEDS: COLLAGENASE 5 GM (UD JAR) TOP (08:31)
[2019-05-24 08:33] LABS: BASOPHIL # 0.1 10^3/ul (0.0-0.1); BASOPHILS % 0.8 % (0.0-2.0); EOSINOPHILS # 0.4 10^3/ul (0.0-0.5); EOSINOPHILS % 6.3 % (0.0-7.0); HEMATOCRIT 31.7 % (42.0-52.0); HEMOGLOBIN 9.8 g/dl (14.0-18.0); LYMPHOCYTES # 1.8 10^3/ul (0.8-2.9); LYMPHOCYTES % 30.3 % (15.0-51.0); MEAN CORPUSCULAR HEMOGLOBIN 28.8 pg (29.0-33.0); MEAN CORPUSCULAR HGB CONC 30.9 g/dl (32.0-37.0); MEAN CORPUSCULAR VOLUME 93.2 fl (82.0-101.0); MEAN PLATELET VOLUME 10.1 fl (7.4-10.4); MONOCYTE # 0.8 10^3/ul (0.3-0.9); MONOCYTES % 12.7 % (0.0-11.0); NEUTROPHIL # 2.9 10^3/ul (1.6-7.5); NEUTROPHILS % 49.2 % (39.0-77.0); PLATELET COUNT 316 10^3/UL (140-415); RED CELL DISTRIBUTION WIDTH 14.4 % (11.5-14.5)
[2019-05-24 08:33] LABS: WHITE BLOOD COUNT 5.9 10^3/ul (4.8-10.8)
[2019-05-24 08:56] LABS: ANION GAP 7 (5-13); BLOOD UREA NITROGEN 60 mg/dl (7-20); CALCIUM 8.8 mg/dl (8.4-10.2); CARBON DIOXIDE 28 mmol/L (21-31); CHLORIDE 99 mmol/L (97-110); CREATININE 1.96 mg/dl (0.61-1.24); Estimated GFR 35 mL/min (>60); GLUCOSE 154 mg/dl (70-220); SODIUM 134 mmol/L (135-144)
[2019-05-24] MEDS: ENOXAPARIN 30 MG/0.3 ML SYG SC (17:15)
[2019-05-24] MEDS ORDERED: INSULIN ASPART [NOVOLOG] 3 ML PEN SC ×3 (17:55→21:00)
[2019-05-24] MEDS: ATORVASTATIN 10 MG TAB GTB (20:59)
[2019-05-24] MEDS: FAMOTIDINE 20 MG TAB GTB (21:00)
[2019-05-24] MEDS: MIRTAZAPINE 15 MG TAB GTB (21:00)
[2019-05-24] MEDS: INSULIN GLARGINE [LANTus] (100 UNITS/ML) SYG SC (21:11)
[2019-05-24] MEDS: HEPARIN 1000 UNITS/ML 10 ML INJ CATHETER (22:16)
[2019-05-24] MEDS: morphine 2 MG INJ IV (23:03)
[2019-05-25] MEDS: INSULIN ASPART [NOVOLOG] 3 ML PEN SC ×6 (00:30→21:00)
[2019-05-25] MEDS: ACCU-CHEK XX (01:29)
[2019-05-25] MEDS ORDERED: ACCU-CHEK XX (02:00)
[2019-05-25] MEDS: METOCLOPRAMIDE (1 MG/ML) 10 ML CUP GTB ×3 (05:34→21:58)
[2019-05-25] MEDS: L ACIDOPHIL/B LACTIS/B LONGUM CAPSULE PO ×2 (08:43→21:58)
[2019-05-25] MEDS: ASPIRIN 81 MG TAB GTB (08:43)
[2019-05-25] MEDS: SEVELAMER CARBONATE 800 MG TABLET PO ×3 (08:43→17:48)
[2019-05-25] MEDS: VENLAFAXINE 37.5 MG TAB GTB ×2 (08:43→21:58)
[2019-05-25] MEDS: LANSOPRAZOLE 30 MG CAP PO ×2 (08:43→21:58)
[2019-05-25] MEDS: MIRTAZAPINE 15 MG TAB GTB ×2 (08:44→21:58)
[2019-05-25] MEDS: ENOXAPARIN 30 MG/0.3 ML SYG SC (08:44)
[2019-05-25] MEDS: GABAPENTIN 100 MG CAP GTB ×3 (08:44→21:58)
[2019-05-25] MEDS: COLLAGENASE 5 GM (UD JAR) TOP (08:45)
[2019-05-25] MEDS: morphine 2 MG INJ IV ×2 (13:39→23:54)
[2019-05-25] MEDS: HEPARIN 1000 UNITS/ML 10 ML INJ CATHETER (18:32)
[2019-05-25] MEDS: FAMOTIDINE 20 MG TAB GTB (21:58)
[2019-05-25] MEDS: ATORVASTATIN 10 MG TAB GTB (21:58)
[2019-05-25] MEDS: INSULIN GLARGINE [LANTus] (100 UNITS/ML) SYG SC (22:06)
[2019-05-26] MEDS: INSULIN ASPART [NOVOLOG] 3 ML PEN SC ×5 (00:48→17:16)
[2019-05-26] MEDS: ACCU-CHEK XX (02:00)
[2019-05-26] MEDS: METOCLOPRAMIDE (1 MG/ML) 10 ML CUP GTB ×3 (06:26→21:01)
[2019-05-26] MEDS: COLLAGENASE 5 GM (UD JAR) TOP (09:18)
[2019-05-26] MEDS: ASPIRIN 81 MG TAB GTB (09:19)
[2019-05-26] MEDS: GABAPENTIN 100 MG CAP GTB ×3 (09:19→20:55)
[2019-05-26] MEDS: LANSOPRAZOLE 30 MG CAP PO ×2 (09:19→20:55)
[2019-05-26] MEDS: SEVELAMER CARBONATE 800 MG TABLET PO ×3 (09:19→17:16)
[2019-05-26] MEDS: VENLAFAXINE 37.5 MG TAB GTB ×2 (09:19→20:56)
[2019-05-26] MEDS: L ACIDOPHIL/B LACTIS/B LONGUM CAPSULE PO ×2 (09:19→20:55)
[2019-05-26] MEDS: MIRTAZAPINE 15 MG TAB GTB ×2 (09:19→20:56)
[2019-05-26] MEDS: ENOXAPARIN 30 MG/0.3 ML SYG SC (09:29)
[2019-05-26] MEDS: hydrALAzine 20 MG INJ IV (17:20)
[2019-05-26] MEDS: ATORVASTATIN 10 MG TAB GTB (20:55)
[2019-05-26] MEDS: FAMOTIDINE 20 MG TAB GTB (20:55)
[2019-05-26] MEDS: INSULIN GLARGINE [LANTus] (100 UNITS/ML) SYG SC (21:24)
[2019-05-27] MEDS: ACCU-CHEK XX (01:22)
[2019-05-27] MEDS: METOCLOPRAMIDE (1 MG/ML) 10 ML CUP GTB ×3 (05:53→21:55)
[2019-05-27] MEDS: INSULIN ASPART [NOVOLOG] 3 ML PEN SC ×5 (05:56→23:14)
[2019-05-27] MEDS: GABAPENTIN 100 MG CAP GTB ×3 (08:52→20:10)
[2019-05-27] MEDS: SEVELAMER CARBONATE 800 MG TABLET PO ×3 (08:52→17:37)
[2019-05-27] MEDS: L ACIDOPHIL/B LACTIS/B LONGUM CAPSULE PO ×2 (08:52→20:10)
[2019-05-27] MEDS: ASPIRIN 81 MG TAB GTB (08:52)
[2019-05-27] MEDS: MIRTAZAPINE 15 MG TAB GTB ×2 (08:53→20:10)
[2019-05-27] MEDS: VENLAFAXINE 37.5 MG TAB GTB ×2 (08:53→20:10)
[2019-05-27] MEDS: LANSOPRAZOLE 30 MG CAP PO ×2 (08:55→20:09)
[2019-05-27] MEDS: COLLAGENASE 5 GM (UD JAR) TOP (08:58)
[2019-05-27] MEDS: ENOXAPARIN 30 MG/0.3 ML SYG SC (09:06)
[2019-05-27] MEDS: HEPARIN 1000 UNITS/ML 10 ML INJ CATHETER (17:40)
[2019-05-27] MEDS: ATORVASTATIN 10 MG TAB GTB (20:10)
[2019-05-27] MEDS: FAMOTIDINE 20 MG TAB GTB (20:10)
[2019-05-27] MEDS: INSULIN GLARGINE [LANTus] (100 UNITS/ML) SYG SC (20:25)
[2019-05-27] MEDS: morphine 2 MG INJ IV (22:44)
[2019-05-28] MEDS: morphine 2 MG INJ IV ×2 (02:26→21:06)
[2019-05-28] MEDS: ACCU-CHEK XX (02:47)
[2019-05-28] MEDS: INSULIN ASPART [NOVOLOG] 3 ML PEN SC ×3 (05:37→17:14)
[2019-05-28] MEDS: METOCLOPRAMIDE (1 MG/ML) 10 ML CUP GTB ×2 (06:24→20:52)
[2019-05-28] MEDS: L ACIDOPHIL/B LACTIS/B LONGUM CAPSULE PO ×2 (08:21→20:52)
[2019-05-28] MEDS: LANSOPRAZOLE 30 MG CAP PO ×2 (08:21→20:52)
[2019-05-28] MEDS: MIRTAZAPINE 15 MG TAB GTB ×2 (08:21→20:56)
[2019-05-28] MEDS: ASPIRIN 81 MG TAB GTB (08:21)
[2019-05-28] MEDS: GABAPENTIN 100 MG CAP GTB (08:21)
[2019-05-28] MEDS: VENLAFAXINE 37.5 MG TAB GTB ×2 (08:22→20:52)
[2019-05-28] MEDS: SEVELAMER CARBONATE 800 MG TABLET PO (08:22)
[2019-05-28] MEDS: COLLAGENASE 5 GM (UD JAR) TOP (08:23)
[2019-05-28] MEDS: ENOXAPARIN 30 MG/0.3 ML SYG SC (08:34)
[2019-05-28] MEDS ORDERED: GABAPENTIN (50 MG/ML PO SYG) GTB (13:00)
[2019-05-28] MEDS: SEVELAMER CARBONATE 0.8 GM PKT GTB ×2 (13:53→18:41)
[2019-05-28] MEDS: traMADol 50 MG TAB GTB (17:05)
[2019-05-28] MEDS ORDERED: INSULIN GLARGINE [LANTus] (100 UNITS/ML) SYG SC (20:00)
[2019-05-28] MEDS: FAMOTIDINE 20 MG TAB GTB (20:52)
[2019-05-28] MEDS: ATORVASTATIN 10 MG TAB GTB (20:53)
[2019-05-28] MEDS: GABAPENTIN (50 MG/ML PO SYG) GTB (20:55)
[2019-05-28] MEDS: INSULIN GLARGINE [LANTus] (100 UNITS/ML) SYG SC (21:29)
[2019-05-29] MEDS: INSULIN ASPART [NOVOLOG] 3 ML PEN SC ×4 (01:38→17:50)
[2019-05-29] MEDS: ACCU-CHEK XX (01:41)
[2019-05-29] MEDS: METOCLOPRAMIDE (1 MG/ML) 10 ML CUP GTB ×2 (09:07→21:07)
[2019-05-29] MEDS: COLLAGENASE 5 GM (UD JAR) TOP (09:07)
[2019-05-29] MEDS: ASPIRIN 81 MG TAB GTB (09:07)
[2019-05-29] MEDS: L ACIDOPHIL/B LACTIS/B LONGUM CAPSULE PO ×2 (09:07→21:10)
[2019-05-29] MEDS: LANSOPRAZOLE 30 MG CAP PO ×2 (09:08→21:08)
[2019-05-29] MEDS: SEVELAMER CARBONATE 0.8 GM PKT GTB ×3 (09:08→17:54)
[2019-05-29] MEDS: VENLAFAXINE 37.5 MG TAB GTB ×2 (09:08→21:10)
[2019-05-29] MEDS: MIRTAZAPINE 15 MG TAB GTB ×2 (09:08→21:09)
[2019-05-29] MEDS: ENOXAPARIN 30 MG/0.3 ML SYG SC (09:25)
[2019-05-29] MEDS: GABAPENTIN (50 MG/ML PO SYG) GTB ×3 (12:25→21:08)
[2019-05-29] MEDS: HEPARIN 1000 UNITS/ML 10 ML INJ CATHETER (19:08)
[2019-05-29] MEDS: morphine 2 MG INJ IV (20:50)
[2019-05-29] MEDS: FAMOTIDINE 20 MG TAB GTB (21:08)
[2019-05-29] MEDS: ATORVASTATIN 10 MG TAB GTB (21:10)
[2019-05-29] MEDS: INSULIN GLARGINE [LANTus] (100 UNITS/ML) SYG SC (21:17)
== END 2019-05-29 23:00 | DRG 207 ==
LOC: TEL 17:00
PROC: 5A1955Z Respiratory Ventilation, Greater than 96 Consecutive Hours (ICD-10-PCS; principal; 2019-05-17 14:10)
PROC: 0D20XUZ Change Feeding Device in Upper Intestinal Tract, External Approach (ICD-10-PCS; 2019-05-17 14:10)
PROC: 5A1D70Z Performance of Urinary Filtration, Intermittent, Less than 6 Hours Per Day (ICD-10-PCS; 2019-05-17 14:10)
DX: Z43.0 Encounter for attention to tracheostomy (principal); N18.6 End stage renal disease; J96.10 Chronic respiratory failure, unspecified whether with hypoxia or hypercapnia; E46 Unspecified protein-calorie malnutrition; K94.23 Gastrostomy malfunction; N39.0 Urinary tract infection, site not specified; Z99.11 Dependence on respirator [ventilator] status; D63.1 Anemia in chronic kidney disease; I48.0 Paroxysmal atrial fibrillation; I69.391 Dysphagia following cerebral infarction; R13.10 Dysphagia, unspecified; N25.0 Renal osteodystrophy; R62.7 Adult failure to thrive; Z68.22 Body mass index [BMI] 22.0-22.9, adult; Z99.2 Dependence on renal dialysis; Z74.01 Bed confinement status; Z87.01 Personal history of pneumonia (recurrent); Z86.74 Personal history of sudden cardiac arrest; Z79.82 Long term (current) use of aspirin
CPT/HCPCS: 43762; 71045; 74018; 80048; 80053; 81001; 82962; 83036; 83735; 84100; 84443; 85025; 85610; 86704; 86709; 86803; 87040-91; 87075; 87081; 87340; 90935; 93005; 93306; 94003; 97165